=== PATIENT | female | born 1945 | race Caucasian/White ===

== ENCOUNTER 2017-10-16 07:32 | Day surgery (SDC) ==
[2017-10-16] MEDS: TETRACAINE 0.5% UNIT-DOSE OP PRN ×3 (07:57→09:17)
[2017-10-16] MEDS: BETADINE OPTH PREP OP PRN ×2 (07:57→09:03)
[2017-10-16] MEDS: CYCLOGYL 2% OPTH OP PRN ×3 (07:58→08:08)
[2017-10-16] MEDS ORDERED: BRIMONIDINE TARTRATE 0.2% OPTH SOL OP PRN (08:10)
[2017-10-16] MEDS ORDERED: BSS WITH EPINEPHRINE OP ONE (08:10)
[2017-10-16] MEDS ORDERED: LIDOCAINE 1% 20 ML MDV ID STA (08:10)
[2017-10-16] MEDS ORDERED: DEX-MOXI-KETOR OPTH INJ 1/0.5/0.4 MG/ML IO ONE (08:10)
[2017-10-16] MEDS ORDERED: ZOFRAN 4 MG/2 ML IVP ONE (08:10)
[2017-10-16] MEDS ORDERED: LIDOCAINE 1%/PHENYLEPHRINE 1.5% BSS (SURGERY) INTRAOCULA ONE (08:10)
[2017-10-16] MEDS ORDERED: VERSED ONE (09:12)
[2017-10-16] MEDS ORDERED: SUBLIMAZE ONE (09:12)
[2017-10-16 13:16] VITALS: BP 126/67
[2017-10-16 13:33] VITALS: TEMP 97.8
== END 2017-10-16 10:30 | disposition home or self-care (01) ==
LOC: SURG 07:32
PROVIDERS: ATTEND Ophthalmology
DX: H25.811 Combined forms of age-related cataract, right eye (principal)

== ENCOUNTER 2017-10-31 10:55 | Day surgery (SDC) ==
[2017-10-31] MEDS ORDERED: BRIMONIDINE TARTRATE 0.2% OPTH SOL OP PRN (12:58)
[2017-10-31] MEDS ORDERED: LIDOCAINE 1% 20 ML MDV ID STA (12:58)
[2017-10-31] MEDS ORDERED: ZOFRAN 4 MG/2 ML IVP ONE (12:58)
[2017-10-31] MEDS: TETRACAINE 0.5% UNIT-DOSE OP PRN ×3 (13:00→13:47)
[2017-10-31] MEDS: BETADINE OPTH PREP OP PRN ×2 (13:00→13:28)
[2017-10-31] MEDS: CYCLOGYL 2% OPTH OP PRN ×3 (13:01→13:11)
[2017-10-31] MEDS: LIDOCAINE 1%/PHENYLEPHRINE 1.5% BSS (SURGERY) INTRAOCULA ONE ×2 (13:29→13:47)
[2017-10-31] MEDS: BSS WITH EPINEPHRINE OP ONE ×2 (13:29→13:47)
[2017-10-31] MEDS: DEX-MOXI-KETOR OPTH INJ 1/0.5/0.4 MG/ML IO ONE ×2 (13:29→13:47)
[2017-10-31] MEDS ORDERED: VERSED ONE (13:45)
[2017-10-31] MEDS ORDERED: SUBLIMAZE ONE (13:45)
[2017-10-31 17:26] VITALS: TEMP 98.4
[2017-11-02 13:32] VITALS: BP 126/67
== END 2017-10-31 14:35 | disposition home or self-care (01) ==
LOC: SURG 10:55
PROVIDERS: ATTEND Ophthalmology
DX: H25.811 Combined forms of age-related cataract, right eye (principal)